=== PATIENT | female | born 1950 | race Caucasian/White ===

== ENCOUNTER 2018-03-03 17:35 | Inpatient (IN) | payer BC, MEDICARE ==
--- NOTE | 2018-03-03 19:06 | RADIOLOGY REPORT (SQ) ---
EXAM DESCRIPTION: VENOUS BILATERAL LOWER COMPLETED DATE/TIME: 03/03/2018 6:38 pm REASON FOR STUDY: SWELLING R22.42 LOCALIZED SWELLING, MASS AND LUMP, LEFT LOWER LIMB COMPARISON: None. TECHNIQUE: Dynamic and static miller scale and color images acquired of both lower extremity venous sy stems. Selected spectral images acquired with additional compression and augmentation maneuvers. Imag es stored on PACS. LIMITATIONS: None. FINDINGS: RIGHT LEG COMMON FEMORAL AND FEMORAL: Normal phasicity, compression and augmentation. No visualized echogenic m aterial on miller scale. No defects on color images. POPLITEAL: Normal compression and augmentation. No visualized echogenic material on miller scale. No de fects on color images. CALF VESSELS: Normal compression and augmentation. No visualized echogenic material on miller scale. No defects on color image. GSV AND SSV: Normal compression. No visualized echogenic material on miller scale. No defects on color images. ANY DEEP VENOUS INSUFFICIENCY: Not evaluated. ANY EVIDENCE OF POPLITEAL CYST: No. OTHER: No other significant finding. LEFT LEG There is thrombosis the in the left lower extremity from the common femoral vein throughout the super ficial femoral, popliteal, and calf veins. The thrombus appears to acute in noncompressible. There is also thrombus noted within the small saphenous vein. IMPRESSION: Acute deep venous thrombosis of the left lower extremity from the common femoral vein to the calf veins with thrombosis of the small saphenous vein on the left as well. No evidence of righ t lower extremity deep venous thrombosis. COMMENT: Pertinent findings on the imaging study reported as a CRITICAL RESULT to KRISTINA GRIMALDO MD at18:49 on 03/03/2018. Category of Critical Result: 1 TECHNICAL DOCUMENTATION: JOB ID: [id number] [employer]- All Rights Reserved Reading location - IP/workstation name: [email or web address]
--- NOTE | 2018-03-03 19:45 | PDOC H&P ---
History of Present Illness Admission Date/PCP: 03/03/18 18:49 History of Present Illness: MARGARET LIRA is a 67 year old female Results Impressions: Venous Doppler Study 03/03/18 00:00 IMPRESSION: Acute deep venous thrombosis of the left lower extremity from the common femoral vein to the calf veins with thrombosis of the small saphenous vein on the left as well. No evidence of right lower extremity deep venous thrombosis.
[2018-03-03 20:26] LABS: ABSOLUTE BASOPHILS # (AUTO) 0.1 10^3/uL (0.0-0.2); ABSOLUTE EOSINOPHILS # (AUTO) 0.2 10^3/uL (0.0-0.6); ABSOLUTE LYMPHOCYTES (AUTO) 1.2 10^3/uL (0.5-4.7); ABSOLUTE MONOCYTES (AUTO) 0.5 10^3/uL (0.1-1.4); ABSOLUTE NEUT (AUTO) 3.5 10^3/uL (1.7-8.2); BASOPHILS % (AUTO) 1.4 % (0-2); EOSINOPHILS % (AUTO) 4.4 % (0-6); HEMATOCRIT 41.6 % (36.0-47.0); LYMPHOCYTES % (AUTO) 21.5 % (13-45); MEAN CORPUSCULAR HEMOGLOBIN 28.2 pg (27.0-33.4); MEAN CORPUSCULAR HGB CONC 33.6 g/dL (32.0-36.0); MEAN CORPUSCULAR VOLUME 84 fl (80-97); MONOCYTES % (AUTO) 9.2 % (3-13); PLATELET COUNT 192 10^3/uL (150-450); RED BLOOD COUNT 4.96 10^6/uL (3.72-5.28); RED CELL DISTRIBUTION WIDTH 15.5 % (11.5-14.0); SEGMENTED NEUTROPHILS % (AUTO) 63.5 % (42-78); TOTAL CELLS COUNTED % (AUTO) 100 %; WHITE BLOOD COUNT 5.5 10^3/uL (4.0-10.5)
[2018-03-03 20:28] LABS: INTERNATIONAL RATION (INR) 0.89; PROTHROMBIN TIME 12.5 SEC (11.4-15.4)
[2018-03-03 20:29] LABS: PARTIAL THROMBOPLASTIN TIME 29.8 SEC (23.5-35.8)
[2018-03-03] MEDS ORDERED: HEPARIN SOD (PORCINE) 1,000 UNIT/ML 10 ML VIAL IV ONE (20:30)
[2018-03-03 20:44] LABS: BLOOD UREA NITROGEN 16 mg/dL (7-20); CALCIUM 9.9 mg/dL (8.4-10.2); GLUCOSE 83 mg/dL (75-110)
[2018-03-03 20:45] LABS: ALANINE AMINOTRANSFERASE 23 U/L (9-52); ALBUMIN 4.4 g/dL (3.5-5.0); ALKALINE PHOSPHATASE 77 U/L (38-126); ANION GAP 16 (5-19); ASPARTATE AMINO TRANSFERASE 32 U/L (14-36); BILIRUBIN,DIRECT 0.2 mg/dL (0.0-0.4); BILIRUBIN,TOTAL 0.5 mg/dL (0.2-1.3); CARBON DIOXIDE 27 mmol/L (22-30); CHLORIDE 99 mmol/L (98-107); POTASSIUM 3.7 mmol/L (3.6-5.0); SODIUM 142.4 mmol/L (137-145)
[2018-03-03] MEDS: HEPARIN SODIUM,PORCINE/D5W 25,000 UNIT/250 ML RTUINJ IV PRN (21:47)
[2018-03-03] MEDS ORDERED: HEPARIN SOD (PORCINE) 1,000 UNIT/ML 10 ML VIAL IV PRN (22:31)
[2018-03-03 23:08] LABS: APPEARANCE,URINE CLEAR; BILIRUBIN,URINE NEGATIVE (NEGATIVE); COLOR,URINE STRAW; GLUCOSE, URINE NEGATIVE (NEGATIVE); KETONES,URINE 20 mg/dL (NEGATIVE); LEUKOCYTE ESTERASE,URINE LARGE (NEGATIVE); NITRITE,URINE NEGATIVE (NEGATIVE); PROTEIN,URINE NEGATIVE (NEGATIVE); URINE SPECIFIC GRAVITY 1.008; UROBILINOGEN,URINE NEGATIVE mg/dL (<2.0)
--- NOTE | 2018-03-04 08:53 | RADIOLOGY REPORT (SQ) ---
EXAM DESCRIPTION: CT ABD/PELVIS WITH IV ORAL COMPLETED DATE/TIME: 03/04/2018 12:32 am REASON FOR STUDY: Extensive unprovoked left leg DVT R22.42 LOCALIZED SWELLING, MASS AND LUMP, LEFT LOWER LIMB COMPARISON: None. TECHNIQUE: CT scan of the abdomen and pelvis performed with intravenous and oral contrast using maryam pearl scanning technique with dynamic intravenous contrast injection. Images reviewed with lung, soft t issue, and bone windows. Reconstructed coronal and sagittal MPR images reviewed. Delayed images for e valuation of the urinary system also acquired. All images stored on PACS. All CT scanners at this facility use dose modulation, iterative reconstruction, and/or weight based d osing when appropriate to reduce radiation dose to as low as reasonably achievable (ALARA). [facility]: Dose Right [facility]: CareDose [facility]: Dose Right [facility]: Teradose 4D [facility]: Tizra CONTRAST TYPE AND DOSE: contrast/concentration: Isovue 370.00 mg/ml; Total Contrast Delivered: 100.0 ml; Total Saline Delivered: 40.0 ml RENAL FUNCTION: Creatinine 0.65. RADIATION DOSE: CT Rad equipment meets quality standard of care and radiation dose reduction techniq ues were employed. CTDIvol: 5.1 - 5.1 mGy. DLP: 534 mGy-cm.. LIMITATIONS: None. FINDINGS: LOWER CHEST: No significant findings. No nodules or infiltrates. LIVER: Normal size. No masses. No dilated ducts. SPLEEN: Normal size. No focal lesions. PANCREAS: No masses. No significant calcifications. No adjacent inflammation or peripancreatic fluid collections. Pancreatic duct not dilated. GALLBLADDER: No identified stones by CT criteria. No inflammatory changes to suggest cholecystitis. ADRENAL GLANDS: No significant masses or asymmetry. RIGHT KIDNEY AND URETER: No solid masses. No significant calcification. No hydronephrosis or hydroure ter. LEFT KIDNEY AND URETER: No solid masses. No significant calcification. No hydronephrosis or hydrouret er. AORTA AND VESSELS: No aneurysm. No dissection. Renal arteries, SMA, celiac without stenosis. RETROPERITONEUM: No retroperitoneal adenopathy, hemorrhage or masses. BOWEL AND PERITONEAL CAVITY: No obstruction. No visualized masses. No free fluid. No inflammatory ch anges or thickening of bowel wall. APPENDIX: Normal. PELVIS: Large soft tissue mass in the left pelvis and inguinal region beginning at the level of the u pper acetabulum and extending into the upper femoral canal. This mass surrounds the femoral vessels. Maximum transverse measurement approximately 7 x 8.6 cm and craniocaudal measurement approximately 9.5 cm. Normal bladder. No free fluid. ABDOMINAL WALL: No masses. No hernias. BONES: No significant or acute findings. OTHER: Asymmetric subcutaneous edema in the visualized upper left thigh. Thrombus in the visualize l eft femoral vein. IMPRESSION: 1. LARGE SOFT TISSUE MASS IN THE LEFT SIDE OF THE PELVIS AND EXTENDING INTO THE UPPER THIGH. THIS CO ULD BE DUE TO PRIMARY SOFT TISSUE NEOPLASM. LYMPHOMA COULD BE ANOTHER POSSIBILITY. THE MASS SURROUN DS THE FEMORAL VESSELS AND IS THE ETIOLOGY FOR THE VENOUS THROMBOSIS IN THE LEFT LEG. 2. NO OTHER SIGNIFICANT OR ACUTE FINDINGS IN THE ABDOMEN OR PELVIS. TECHNICAL DOCUMENTATION: JOB ID: [id number] Quality ID # [id number]: Final reports with documentation of one or more dose reduction techniques (e.g., Au tomated exposure control, adjustment of the mA and/or kV according to patient size, use of iterative reconstruction technique) 2010 [employer]- All Rights Reserved Reading location - IP/workstation name: [facility] [[email or web address]]
--- NOTE | 2018-03-04 08:54 | PDOC H&P ---
History of Present Illness Admission Date/PCP: 03/03/18 18:49 KRISTINA GRIMALDO MD Patient complains of: Left leg swelling History of Present Illness: MARGARET LIRA is a 67 year old female patient that is new to my practice presented with 3 months history of gradual left leg swelling. She denied any associated pain, distant travelling in recent time, trauma or instrumentation. She denied any prolong immobility. Her morbidities include history of thyroid problem, nasal polyps, and obesity. She denied current use of hormone replacement therapy and quit cigarette smoking since 2000. She has been taking Aspirin 81 mg p.o daily. Her initial evaluation in the office was significant for localized edema of left leg to groin level with concern for possible DVT. She was schedule for STAT lower extremities venous doppler evaluation that revealed extensive acute DVT involving the left femoral, popliteal and superficial saphenous veins. She was advised hospitalization for intravenous anticoagulation n view of the clot burden. Her morbidities include thyroid problem, nasal polyps, and obesity. Past Medical History Cardiac Medical History: Reports: None Pulmonary Medical History: Reports: None EENT Medical History: Reports: Nose - Nasal polyp Neurological Medical History: Reports: None Endocrine Medical History: Reports: Hypothyroidism Renal/ Medical History: Reports: None Malignancy Medical History: Reports: None GI Medical History: Reports: None Musculoskeltal Medical History: Reports: Arthritis Skin Medical History: Reports: None Psychiatric Medical History: Reports: None Traumatic Medical History: Reports: None Hematology: Reports: None Infectious Medical History: Reports: None Past Surgical History Past Surgical History: Reports: Hysterectomy Social History Smoking Status: Former Smoker Last Time Smoked: 2001 Frequency of Alcohol Use: None Hx Recreational Drug Use: No Drugs: None Hx Prescription Drug Abuse: No - Advance Directive Resuscitation Status: Full Code Family History Parental Family History Reviewed: Yes Children Family History Reviewed: Yes Sibling(s) Family History Reviewed.: Yes Medication/Allergy Allergies/Adverse Reactions: No Known Allergies Allergy (Verified 03/04/18 03:42) Physical Exam Vital Signs: Temp Pulse Resp BP Pulse Ox 97.6 F 54 L 16 123/68 97 03/04/18 03:37 03/04/18 03:37 03/04/18 03:37 03/04/18 03:37 03/04/18 03:37 Intake & Output 03/03/18 03/04/18 03/05/18 06:59 06:59 06:59 Intake Total 69 Output Total 800 Balance -731 Weight 59.874 kg General appearance: PRESENT: no acute distress, well-developed, well-nourished Head exam: PRESENT: atraumatic, normocephalic Eye exam: PRESENT: conjunctiva pink, EOMI, PERRLA. ABSENT: scleral icterus Ear exam: PRESENT: normal external ear exam Mouth exam: PRESENT: moist, tongue midline Throat exam: ABSENT: post pharyngeal erythema, tonsillar erythema, tonsillar exudate, tonsillogmegaly, other Neck exam: PRESENT: full ROM. ABSENT: carotid bruit, JVD, lymphadenopathy, thyromegaly Respiratory exam: PRESENT: clear to auscultation barrera Cardiovascular exam: PRESENT: RRR. ABSENT: diastolic murmur, rubs, systolic murmur Pulses: PRESENT: +1 pedal pulses bilateral - left lower extremity Vascular exam: PRESENT: normal capillary refill. ABSENT: pallor GI/Abdominal exam: PRESENT: normal bowel sounds, soft, other - palpable pulsating abdominal aorta. ABSENT: distended, guarding, mass, organolmegaly, rebound, tenderness Rectal exam: PRESENT: deferred Extremities exam: PRESENT: pedal edema - left leg to groin level Musculoskeletal exam: PRESENT: ambulatory Neurological exam: PRESENT: alert, awake, oriented to person, oriented to place , oriented to time, oriented to situation, CN II-XII grossly intact. ABSENT: motor sensory deficit Psychiatric exam: PRESENT: appropriate affect, normal mood. ABSENT: homicidal ideation, suicidal ideation Skin exam: PRESENT: dry, erythema - dependent in left leg, warm, other - distended superficial veins on left thigh. Some degree of varicose veins bilaterally Results Laboratory Results: 03/03/18 20:05 03/03/18 20:05 03/03/18 03/03/18 03/03/18 20:05 20:05 22:00 WBC 5.5 RBC 4.96 Hgb 14.0 Hct 41.6 MCV 84 MCH 28.2 MCHC 33.6 RDW 15.5 H Plt Count 192 Seg Neutrophils % 63.5 Lymphocytes % 21.5 Monocytes % 9.2 Eosinophils % 4.4 Basophils % 1.4 Absolute Neutrophils 3.5 Absolute Lymphocytes 1.2 Absolute Monocytes 0.5 Absolute Eosinophils 0.2 Absolute Basophils 0.1 Sodium 142.4 Potassium 3.7 Chloride 99 Carbon Dioxide 27 Anion Gap 16 BUN 16 Creatinine 0.65 Est GFR ( Amer) > 60 Est GFR (Non-Af Amer) > 60 Glucose 83 Calcium 9.9 Total Bilirubin 0.5 AST 32 ALT 23 Alkaline Phosphatase 77 Total Protein 8.0 Albumin 4.4 Urine Color STRAW Urine Appearance CLEAR Urine pH 6.0 Ur Specific [place] 1.008 Urine Protein NEGATIVE Urine Glucose (UA) NEGATIVE Urine Ketones 20 H Urine Blood NEGATIVE Urine Nitrite NEGATIVE Ur Leukocyte Esterase LARGE H Urine WBC (Auto) 5 Urine RBC (Auto) 1 Impressions: Venous Doppler Study 03/03/18 00:00 IMPRESSION: Acute deep venous thrombosis of the left lower extremity from the common femoral vein to the calf veins with thrombosis of the small saphenous vein on the left as well. No evidence of right lower extremity deep venous thrombosis. Assessment & Plan - Diagnosis (1) Deep vein thrombosis (DVT) of left lower extremity Qualifiers: Affected thrombotic vein of extremity: femoral Chronicity: acute Qualified Code(s): I82.412 - Acute embolism and thrombosis of left femoral vein Is this a current diagnosis for this admission?: Yes Plan: See admitting attending physician orders. - Time Time Spent: 50 to 70 Minutes Medications reviewed and adjusted accordingly: Yes Anticipated discharge: Home Within: Other - Inpatient Certification Based on my medical assessment, after consideration of the patient's comorbidities, presenting symptoms, or acuity I expect that the services needed warrant INPATIENT care.: Yes I certify that my determination is in accordance with my understanding of Medicare's requirements for reasonable and necessary INPATIENT services [42 CFR 412.3e].: Yes Medical Necessity: Need Close Monitoring Due to Risk of Patient Decompensation, Need For Continuous Telemetry Monitoring, Risk of Complication if Not Cared For in Hospital Post Hospital Care: D/C Casing Man Documentation - Plan Summary Plan Summary: See attending physician orders.
--- NOTE | 2018-03-04 19:03 | PDOC PROGRESS REPORT ---
Subjective Progress Note for:: 03/04/18 Subjective:: Patient denied any chest pain, difficulty with breathing, nausea, vomiting or abdominal pain. She remain on IV heparin therapy for acute extensive DVT with femoral vein involvement. No abnormal bleeding. Reason For Visit: EXTENSIVE DVT LEFT LOWER EXTREMITY Physical Exam Vital Signs: Temp Pulse Resp BP Pulse Ox 97.6 F 54 L 16 123/68 97 03/04/18 03:37 03/04/18 03:37 03/04/18 03:37 03/04/18 03:37 03/04/18 03:37 Intake & Output 03/03/18 03/04/18 03/05/18 06:59 06:59 06:59 Intake Total 69 Output Total 800 Balance -731 Weight 59.874 kg General appearance: PRESENT: no acute distress, well-developed, well-nourished Head exam: PRESENT: atraumatic, normocephalic Eye exam: PRESENT: conjunctiva pink, EOMI, PERRLA. ABSENT: scleral icterus Ear exam: PRESENT: normal external ear exam Mouth exam: PRESENT: moist, neck supple, tongue midline Respiratory exam: PRESENT: clear to auscultation barrera Cardiovascular exam: PRESENT: RRR. ABSENT: diastolic murmur, rubs, systolic murmur Vascular exam: PRESENT: normal capillary refill. ABSENT: pallor GI/Abdominal exam: PRESENT: normal bowel sounds, soft. ABSENT: distended, guarding, mass, organolmegaly, rebound, tenderness Rectal exam: PRESENT: deferred Extremities exam: PRESENT: pedal edema - left lower extremity Musculoskeletal exam: PRESENT: ambulatory Neurological exam: PRESENT: alert, awake, oriented to person, oriented to place , oriented to time, oriented to situation, CN II-XII grossly intact. ABSENT: motor sensory deficit Psychiatric exam: PRESENT: appropriate affect, normal mood. ABSENT: homicidal ideation, suicidal ideation Skin exam: PRESENT: dry, intact, warm. ABSENT: cyanosis, rash Results Laboratory Results: 03/03/18 20:05 03/03/18 20:05 03/03/18 03/03/18 03/03/18 20:05 20:05 22:00 WBC 5.5 RBC 4.96 Hgb 14.0 Hct 41.6 MCV 84 MCH 28.2 MCHC 33.6 RDW 15.5 H Plt Count 192 Seg Neutrophils % 63.5 Lymphocytes % 21.5 Monocytes % 9.2 Eosinophils % 4.4 Basophils % 1.4 Absolute Neutrophils 3.5 Absolute Lymphocytes 1.2 Absolute Monocytes 0.5 Absolute Eosinophils 0.2 Absolute Basophils 0.1 Sodium 142.4 Potassium 3.7 Chloride 99 Carbon Dioxide 27 Anion Gap 16 BUN 16 Creatinine 0.65 Est GFR ( Amer) > 60 Est GFR (Non-Af Amer) > 60 Glucose 83 Calcium 9.9 Total Bilirubin 0.5 AST 32 ALT 23 Alkaline Phosphatase 77 Total Protein 8.0 Albumin 4.4 Urine Color STRAW Urine Appearance CLEAR Urine pH 6.0 Ur Specific [place] 1.008 Urine Protein NEGATIVE Urine Glucose (UA) NEGATIVE Urine Ketones 20 H Urine Blood NEGATIVE Urine Nitrite NEGATIVE Ur Leukocyte Esterase LARGE H Urine WBC (Auto) 5 Urine RBC (Auto) 1 Impressions: Venous Doppler Study 03/03/18 00:00 IMPRESSION: Acute deep venous thrombosis of the left lower extremity from the common femoral vein to the calf veins with thrombosis of the small saphenous vein on the left as well. No evidence of right lower extremity deep venous thrombosis. Abdomen/Pelvis CT 03/04/18 00:00 IMPRESSION: 1. LARGE SOFT TISSUE MASS IN THE LEFT SIDE OF THE PELVIS AND EXTENDING INTO THE UPPER THIGH. THIS COULD BE DUE TO PRIMARY SOFT TISSUE NEOPLASM. LYMPHOMA COULD BE ANOTHER POSSIBILITY. THE MASS SURROUNDS THE FEMORAL VESSELS AND IS THE ETIOLOGY FOR THE VENOUS THROMBOSIS IN THE LEFT LEG. 2. NO OTHER SIGNIFICANT OR ACUTE FINDINGS IN THE ABDOMEN OR PELVIS. Assessment & Plan - Diagnosis (1) Deep vein thrombosis (DVT) of left lower extremity Qualifiers: Affected thrombotic vein of extremity: femoral Chronicity: acute Qualified Code(s): I82.412 - Acute embolism and thrombosis of left femoral vein Is this a current diagnosis for this admission?: Yes (2) Pelvic mass in female Is this a current diagnosis for this admission?: Yes Plan: See attending physician orders. - Time Time Spent with patient: 25-34 minutes Medications reviewed and adjusted accordingly: Yes Anticipated discharge: Home Within: Other - Inpatient Certification Based on my medical assessment, after consideration of the patient's comorbidities, presenting symptoms, or acuity I expect that the services needed warrant INPATIENT care.: Yes I certify that my determination is in accordance with my understanding of Medicare's requirements for reasonable and necessary INPATIENT services [42 CFR 412.3e].: Yes Medical Necessity: Need Close Monitoring Due to Risk of Patient Decompensation, Need For Continuous Telemetry Monitoring, Risk of Complication if Not Cared For in Hospital Post Hospital Care: D/C Network Programmer Documentation - Plan Summary Plan Summary: Continue IV anticoagulation therapy with Heparin. I reviewed and discussed CT abdomen and pelvic findings with marble mason radiologist. Lesion is accessible to biopsy. I discussed CT abdomen/pelvic findings with patient and son at bedside. Need for US or CT guided biopsy of left pelvic mass. We will hold IV heparin infusion for at least 4 hours prior to biopsy procedure.
[2018-03-05] MEDS: HEPARIN SODIUM,PORCINE/D5W 25,000 UNIT/250 ML RTUINJ IV PRN (05:55)
[2018-03-05 06:05] LABS: HEMATOCRIT 38.6 % (36.0-47.0); HEMOGLOBIN 12.9 g/dL (12.0-15.5); MEAN CORPUSCULAR HEMOGLOBIN 28.3 pg (27.0-33.4); MEAN CORPUSCULAR HGB CONC 33.5 g/dL (32.0-36.0); MEAN CORPUSCULAR VOLUME 85 fl (80-97); PLATELET COUNT 171 10^3/uL (150-450); RED BLOOD COUNT 4.57 10^6/uL (3.72-5.28); RED CELL DISTRIBUTION WIDTH 15.6 % (11.5-14.0); WHITE BLOOD COUNT 5.2 10^3/uL (4.0-10.5)
[2018-03-05 07:16] LABS: APPEARANCE,URINE CLEAR; BILIRUBIN,URINE NEGATIVE (NEGATIVE); COLOR,URINE YELLOW; GLUCOSE, URINE NEGATIVE (NEGATIVE); KETONES,URINE TRACE mg/dL (NEGATIVE); LEUKOCYTE ESTERASE,URINE MODERATE (NEGATIVE); NITRITE,URINE NEGATIVE (NEGATIVE); PROTEIN,URINE NEGATIVE (NEGATIVE); URINE SPECIFIC GRAVITY 1.019; UROBILINOGEN,URINE NEGATIVE mg/dL (<2.0)
[2018-03-05] MEDS ORDERED: LIDOCAINE 1% INJ-PF (10 MG/ML) 30 ML SDV ONE (12:56)
--- NOTE | 2018-03-05 13:59 | RADIOLOGY REPORT (SQ) ---
EXAM DESCRIPTION: US BIOPSY SFT TISS JEAN STEWART COMPLETED DATE/TIME: 03/05/2018 1:39 pm REASON FOR STUDY: Lf. pelvic mass Lf. leg DVT on heparin infusion R22.42 LOCALIZED SWELLING, MASS AND LUMP, LEFT LOWER LIMB COMPARISON: CT scan TECHNIQUE: The procedure was discussed with the patient and the patient agreed to proceed. The patient was scanned and the area of interest left lower abdomen to groins. This correlates with the area of concern on prior imaging studies. This area was targeted for ultrasound-guided core biops y. After sterile skin prep and 5 mL local lidocaine 1% for skin and deep tissue anesthesia, a 14 biopsy needle was used to obtain several cores of tissue from the lesion. There were no immediate post-pro cedure complications. LIMITATIONS: None. FINDINGS: Ultrasound-guided biopsy of soft tissue mass in the left lower quadrant. IMPRESSION: Ultrasound-guided biopsy of soft tissue mass in the left lower quadrant. Pathology is p ending. COMMENT: COMMUNICATION: Awaiting pathology. Patient medication list reviewed: Yes- Quality ID# [id number]:Eligible professional attests to documenting i n the medical record they obtained, updated, or reviewed the patient's current medications. TECHNICAL DOCUMENTATION: JOB ID: [id number] [employer]- All Rights Reserved Reading location - IP/workstation name: [email or web address]
[2018-03-05] MEDS ORDERED: HEPARIN SODIUM,PORCINE/D5W 25,000 UNIT/250 ML RTUINJ IV PRN (15:18)
[2018-03-05] MEDS ORDERED: HEPARIN SOD (PORCINE) 1,000 UNIT/ML 10 ML VIAL IV PRN (15:18)
--- NOTE | 2018-03-05 15:42 | PDOC PROGRESS REPORT ---
Subjective Progress Note for:: 03/05/18 Subjective:: No abnormal bleeding. remain on IV Heparin infusion for extensive DVT. She had left pelvic mass biopsy earlier today. No chest pain or difficulty with breathing. No nausea, vomiting, or abdominal pain. No fever or chills. Reason For Visit: EXTENSIVE DVT LEFT LOWER EXTREMITY Physical Exam Vital Signs: Temp Pulse Resp BP Pulse Ox 98.2 F 65 16 119/67 96 03/05/18 11:22 03/05/18 11:22 03/05/18 11:22 03/05/18 11:22 03/05/18 11:22 Intake & Output 03/04/18 03/05/18 03/06/18 06:59 06:59 06:59 Intake Total 69 907 189 Output Total 800 Balance -731 907 189 Weight 59.874 kg 59.3 kg Physical Exam: General appearance: PRESENT: no acute distress, well-developed, well-nourished Head exam: PRESENT: atraumatic, normocephalic Eye exam: PRESENT: conjunctiva pink, EOMI, PERRLA. ABSENT: scleral icterus Ear exam: PRESENT: normal external ear exam Mouth exam: PRESENT: moist, neck supple, tongue midline Respiratory exam: PRESENT: clear to auscultation barrera Cardiovascular exam: PRESENT: RRR. ABSENT: diastolic murmur, rubs, systolic murmur Vascular exam: PRESENT: normal capillary refill. ABSENT: pallor GI/Abdominal exam: PRESENT: normal bowel sounds, soft. ABSENT: distended, guarding, mass, organomegaly, rebound, tenderness Rectal exam: PRESENT: deferred Extremities exam: PRESENT: pedal edema - left lower extremity Musculoskeletal exam: PRESENT: ambulatory Neurological exam: PRESENT: alert, awake, oriented to person, oriented to place , oriented to time, oriented to situation, CN II-XII grossly intact. ABSENT: motor sensory deficit Psychiatric exam: PRESENT: appropriate affect, normal mood. ABSENT: homicidal ideation, suicidal ideation Skin exam: PRESENT: dry, intact, warm. ABSENT: cyanosis, rash Results Laboratory Results: 03/05/18 05:52 03/03/18 20:05 03/05/18 03/05/18 05:52 06:30 WBC 5.2 RBC 4.57 Hgb 12.9 Hct 38.6 MCV 85 MCH 28.3 MCHC 33.5 RDW 15.6 H Plt Count 171 Urine Color YELLOW Urine Appearance CLEAR Urine pH 5.0 Ur Specific [place] 1.019 Urine Protein NEGATIVE Urine Glucose (UA) NEGATIVE Urine Ketones TRACE H Urine Blood NEGATIVE Urine Nitrite NEGATIVE Ur Leukocyte Esterase MODERATE H Urine WBC (Auto) 3 Urine RBC (Auto) 0 Impressions: Venous Doppler Study 03/03/18 00:00 IMPRESSION: Acute deep venous thrombosis of the left lower extremity from the common femoral vein to the calf veins with thrombosis of the small saphenous vein on the left as well. No evidence of right lower extremity deep venous thrombosis. Abdomen/Pelvis CT 03/04/18 00:00 IMPRESSION: 1. LARGE SOFT TISSUE MASS IN THE LEFT SIDE OF THE PELVIS AND EXTENDING INTO THE UPPER THIGH. THIS COULD BE DUE TO PRIMARY SOFT TISSUE NEOPLASM. LYMPHOMA COULD BE ANOTHER POSSIBILITY. THE MASS SURROUNDS THE FEMORAL VESSELS AND IS THE ETIOLOGY FOR THE VENOUS THROMBOSIS IN THE LEFT LEG. 2. NO OTHER SIGNIFICANT OR ACUTE FINDINGS IN THE ABDOMEN OR PELVIS. Pelvis Biopsy Ultrasound 03/05/18 06:00 IMPRESSION: Ultrasound-guided biopsy of soft tissue mass in the left lower quadrant. Pathology is pending. Assessment & Plan - Diagnosis (1) Deep vein thrombosis (DVT) of left lower extremity Qualifiers: Affected thrombotic vein of extremity: femoral Chronicity: acute Qualified Code(s): I82.412 - Acute embolism and thrombosis of left femoral vein Is this a current diagnosis for this admission?: Yes Plan: Continue attending physician orders. I will request vascular surgery consultation with Dr Ady Pate for consideration of IVC filter placement in view of clot burden and high risk of embolization. (2) Pelvic mass in female Is this a current diagnosis for this admission?: Yes Plan: Follow up on biopsy pathology report. - Time Time Spent with patient: 25-34 minutes Medications reviewed and adjusted accordingly: Yes Anticipated discharge: Home Within: Other - Inpatient Certification Based on my medical assessment, after consideration of the patient's comorbidities, presenting symptoms, or acuity I expect that the services needed warrant INPATIENT care.: Yes I certify that my determination is in accordance with my understanding of Medicare's requirements for reasonable and necessary INPATIENT services [42 CFR 412.3e].: Yes Medical Necessity: Need Close Monitoring Due to Risk of Patient Decompensation, Need For Continuous Telemetry Monitoring, Risk of Complication if Not Cared For in Hospital Post Hospital Care: D/C Project/Production Manager Imaging Documentation - Plan Summary Plan Summary: See attending physician orders.
[2018-03-06 06:39] LABS: PROTEIN C ANTIGEN 89 % (60-150)
--- NOTE | 2018-03-06 13:45 | PDOC CONSULTATION ---
Consultation Consult Date: 03/06/18 Attending physician:: porter Ibarra Consult reason:: Left lower extremity DVT swelling, left pelvic mass. Regarding management. History of Present Illness Admission Date/PCP: 03/03/18 18:49 Patient complains of: Left-sided leg swelling and the left lower abdominal mass. Actually noted over the last 3 months but worse of late. Not much discomfort. She is active gardening and doing yard work and also in her job As an [employer] Pre [employer]er. History of Present Illness: MARGARET LIRA is a 67 year old female Past Medical History Cardiac Medical History: Reports: None Pulmonary Medical History: Reports: None EENT Medical History: Reports: Nose - Nasal polyp Neurological Medical History: Reports: None Endocrine Medical History: Reports: Hypothyroidism Renal/ Medical History: Reports: None Malignancy Medical History: Reports: None GI Medical History: Reports: None Musculoskeltal Medical History: Reports: Arthritis Skin Medical History: Reports: None Psychiatric Medical History: Reports: None Traumatic Medical History: Reports: None Hematology: Reports: None Infectious Medical History: Reports: None Past Surgical History Past Surgical History: Reports: Hysterectomy Social History Smoking Status: Former Smoker Last Time Smoked: 2001 Frequency of Alcohol Use: None Hx Recreational Drug Use: No Drugs: None Hx Prescription Drug Abuse: No - Advance Directive Resuscitation Status: Full Code Family History Parental Family History Reviewed: No Children Family History Reviewed: No Sibling(s) Family History Reviewed.: No Medication/Allergy Home Medications: Aspirin [Ecotrin 81 mg EC Tablet] 81 mg PO DAILY 03/04/18 Allergies/Adverse Reactions: No Known Allergies Allergy (Verified 03/04/18 03:42) Physical Exam Vital Signs: Temp Pulse Resp BP Pulse Ox 97.7 F 62 20 123/65 98 03/06/18 12:18 03/06/18 12:18 03/06/18 12:18 03/06/18 12:18 03/06/18 12:18 Intake & Output 03/05/18 03/06/18 03/07/18 06:59 06:59 06:59 Intake Total 907 872 55 Balance 907 872 55 Weight 59.3 kg 58.9 kg Additional comments: Constitutional: Well-developed well-nourished lady. No apparent acute distress. Eyes: Mucous membranes pink and moist, pupils equal and reactive to light. Conjunctiva normal. Cornea normal. ENT: Hearing grossly normal. External pinna normal to inspection. Teeth intact. Tongue normal to inspection. Cardiac: Heart sounds 1 and 2 normal, no murmurs. No carotid bruit. Respiratory breath sounds are present bilaterally, normal. Normal respiratory effort. Skin: Normal to inspection. No ulcers, normal turgor. Abdomen: Soft, nontender. Liver and spleen are not palpably enlarged. Left lower pelvic mass appreciated diffusely. No hernia noted. Psychiatric: Judgment, memory, insight seem normal. Mood is pleasant and appropriate. Extremities: Upper extremities show normal range of movement. Pulses present noted to the radial arteries. Capillary refill normal. No cyanosis noted. No muscle wasting noted. Lower extremities show normal range of movement. Pulses present noted to the dorsalis pedis artery. Capillary refill normal. No cyanosis noted. No muscle wasting noted. Considerable swelling is appreciated from above the ankle up to the upper thigh, on the left only. Results Laboratory Results: 03/05/18 05:52 03/03/18 20:05 Impressions: Venous Doppler Study 03/03/18 00:00 IMPRESSION: Acute deep venous thrombosis of the left lower extremity from the common femoral vein to the calf veins with thrombosis of the small saphenous vein on the left as well. No evidence of right lower extremity deep venous thrombosis. Abdomen/Pelvis CT 03/04/18 00:00 IMPRESSION: 1. LARGE SOFT TISSUE MASS IN THE LEFT SIDE OF THE PELVIS AND EXTENDING INTO THE UPPER THIGH. THIS COULD BE DUE TO PRIMARY SOFT TISSUE NEOPLASM. LYMPHOMA COULD BE ANOTHER POSSIBILITY. THE MASS SURROUNDS THE FEMORAL VESSELS AND IS THE ETIOLOGY FOR THE VENOUS THROMBOSIS IN THE LEFT LEG. 2. NO OTHER SIGNIFICANT OR ACUTE FINDINGS IN THE ABDOMEN OR PELVIS. Pelvis Biopsy Ultrasound 03/05/18 06:00 IMPRESSION: Ultrasound-guided biopsy of soft tissue mass in the left lower quadrant. Pathology is pending. Assessment & Plan - Plan Summary Plan Summary: In this pleasant generally very healthy and active lady, hospitalized for left lower extremity swelling with DVT and finding of a left pelvic mass, the major issue appears to be the mass which has been biopsied results probably are available early next week. The swelling and mass have been known to the patient for approximately 3 months. No need for inferior vena cava filter in this case. I do completely agree with anticoagulation for 6 weeks to 3 months. I do recommend use of compression stockings, knee-high, 20-30 mmHg. These are to be worn during the day and may be removed in the evening. Hydration, activity, especially with stockings on encouraged. No obvious impediment to the patient's continuing her normal occupation. Thank you for the courtesy of this consultation. I will be happy to see the patient on an outpatient basis for further management of her lower extremity issues
--- NOTE | 2018-03-06 15:01 | PDOC PROGRESS REPORT ---
Subjective Progress Note for:: 03/06/18 Subjective:: Patient was seen by the bedside, she has extensive deep vein thrombosis of the left lower extremity, CT scan of the abdomen and pelvis demonstrated a large pelvic mass, biopsy was taken, pathology is pending Reason For Visit: EXTENSIVE DVT LEFT LOWER EXTREMITY Physical Exam Vital Signs: Temp Pulse Resp BP Pulse Ox 97.7 F 62 20 123/65 98 03/06/18 12:18 03/06/18 12:18 03/06/18 12:18 03/06/18 12:18 03/06/18 12:18 Intake & Output 03/05/18 03/06/18 03/07/18 06:59 06:59 06:59 Intake Total 907 872 55 Balance 907 872 55 Weight 59.3 kg 58.9 kg General appearance: PRESENT: no acute distress Eye exam: PRESENT: PERRLA Respiratory exam: PRESENT: clear to auscultation barrera Cardiovascular exam: PRESENT: +S1, +S2 GI/Abdominal exam: PRESENT: soft Extremities exam: PRESENT: other - Extensive swelling of the left leg Neurological exam: PRESENT: alert Results Laboratory Results: 03/05/18 05:52 03/03/18 20:05 Impressions: Venous Doppler Study 03/03/18 00:00 IMPRESSION: Acute deep venous thrombosis of the left lower extremity from the common femoral vein to the calf veins with thrombosis of the small saphenous vein on the left as well. No evidence of right lower extremity deep venous thrombosis. Abdomen/Pelvis CT 03/04/18 00:00 IMPRESSION: 1. LARGE SOFT TISSUE MASS IN THE LEFT SIDE OF THE PELVIS AND EXTENDING INTO THE UPPER THIGH. THIS COULD BE DUE TO PRIMARY SOFT TISSUE NEOPLASM. LYMPHOMA COULD BE ANOTHER POSSIBILITY. THE MASS SURROUNDS THE FEMORAL VESSELS AND IS THE ETIOLOGY FOR THE VENOUS THROMBOSIS IN THE LEFT LEG. 2. NO OTHER SIGNIFICANT OR ACUTE FINDINGS IN THE ABDOMEN OR PELVIS. Pelvis Biopsy Ultrasound 03/05/18 06:00 IMPRESSION: Ultrasound-guided biopsy of soft tissue mass in the left lower quadrant. Pathology is pending. Assessment & Plan - Diagnosis (1) Deep vein thrombosis (DVT) of left lower extremity Qualifiers: Affected thrombotic vein of extremity: femoral Chronicity: acute Qualified Code(s): I82.412 - Acute embolism and thrombosis of left femoral vein Is this a current diagnosis for this admission?: Yes Plan: Continue IV coagulation with heparin (2) Pelvic mass in female Is this a current diagnosis for this admission?: Yes
[2018-03-06] MEDS: HEPARIN SODIUM,PORCINE/D5W 25,000 UNIT/250 ML RTUINJ IV PRN (17:00)
[2018-03-07 06:05] LABS: PROTEIN C ACTIVITY 104 % (73-180); PROTEIN S FREE 77 % (57-157); PROTEIN S FUNCTIONAL 80 % (63-140); PROTEIN S TOTAL 110 % (60-150)
--- NOTE | 2018-03-07 15:14 | PDOC PROGRESS REPORT ---
Subjective Progress Note for:: 03/07/18 Subjective:: She has extensive DVT in the background of the pelvic mass probably malignant, pathology is pending, it is reasonable at this point to transition to oral anticoagulant. Reason For Visit: EXTENSIVE DVT LEFT LOWER EXTREMITY Physical Exam Vital Signs: Temp Pulse Resp BP Pulse Ox 97.3 F 61 16 124/71 99 03/07/18 08:02 03/07/18 08:02 03/07/18 08:02 03/07/18 08:02 03/07/18 08:02 Intake & Output 03/06/18 03/07/18 03/08/18 06:59 06:59 06:59 Intake Total 872 2 Balance 872 2 Weight 58.9 kg 63 kg General appearance: PRESENT: no acute distress Eye exam: PRESENT: PERRLA Respiratory exam: PRESENT: clear to auscultation barrera Cardiovascular exam: PRESENT: +S1, +S2 GI/Abdominal exam: PRESENT: soft Neurological exam: PRESENT: alert Results Laboratory Results: 03/05/18 05:52 03/03/18 20:05 Impressions: Venous Doppler Study 03/03/18 00:00 IMPRESSION: Acute deep venous thrombosis of the left lower extremity from the common femoral vein to the calf veins with thrombosis of the small saphenous vein on the left as well. No evidence of right lower extremity deep venous thrombosis. Abdomen/Pelvis CT 03/04/18 00:00 IMPRESSION: 1. LARGE SOFT TISSUE MASS IN THE LEFT SIDE OF THE PELVIS AND EXTENDING INTO THE UPPER THIGH. THIS COULD BE DUE TO PRIMARY SOFT TISSUE NEOPLASM. LYMPHOMA COULD BE ANOTHER POSSIBILITY. THE MASS SURROUNDS THE FEMORAL VESSELS AND IS THE ETIOLOGY FOR THE VENOUS THROMBOSIS IN THE LEFT LEG. 2. NO OTHER SIGNIFICANT OR ACUTE FINDINGS IN THE ABDOMEN OR PELVIS. Pelvis Biopsy Ultrasound 03/05/18 06:00 IMPRESSION: Ultrasound-guided biopsy of soft tissue mass in the left lower quadrant. Pathology is pending. Assessment & Plan - Diagnosis (1) Deep vein thrombosis (DVT) of left lower extremity Qualifiers: Affected thrombotic vein of extremity: femoral Chronicity: acute Qualified Code(s): I82.412 - Acute embolism and thrombosis of left femoral vein Is this a current diagnosis for this admission?: Yes Plan: It is reasonable at this point to transition to oral anticoagulant, Discontinue IV heparin, start oral Xarelto 15 mg p.o. twice daily for 3 weeks then 20 mg p.o. daily (2) Pelvic mass in female Is this a current diagnosis for this admission?: Yes
[2018-03-07] MEDS: RIVAROXABAN 15 MG TABLET PO SCH (16:17)
[2018-03-08 04:40] LABS: HEMATOCRIT 37.8 % (36.0-47.0); HEMOGLOBIN 12.6 g/dL (12.0-15.5); MEAN CORPUSCULAR HEMOGLOBIN 28.3 pg (27.0-33.4); MEAN CORPUSCULAR HGB CONC 33.2 g/dL (32.0-36.0); MEAN CORPUSCULAR VOLUME 85 fl (80-97); PLATELET COUNT 163 10^3/uL (150-450); RED BLOOD COUNT 4.43 10^6/uL (3.72-5.28); WHITE BLOOD COUNT 5.5 10^3/uL (4.0-10.5)
[2018-03-08] MEDS: RIVAROXABAN 15 MG TABLET PO SCH ×2 (08:12→18:57)
--- NOTE | 2018-03-08 19:58 | PDOC PROGRESS REPORT ---
Subjective Progress Note for:: 03/08/18 Subjective:: Interval notes and surgical consult recommendations appreciated. Patient remain on IV Heparin infusion for extensive DVT. No reported abnormal bleeding. Awaiting left pelvic mass biopsy pathology report. No chest pain or difficulty with breathing. No nausea, vomiting, or abdominal pain. No fever or chills. Reason For Visit: EXTENSIVE DVT LEFT LOWER EXTREMITY Physical Exam Vital Signs: Temp Pulse Resp BP Pulse Ox 97.9 F 60 18 117/65 98 03/07/18 20:03 03/08/18 02:00 03/07/18 20:03 03/07/18 20:03 03/07/18 20:03 Intake & Output 03/07/18 03/08/18 03/09/18 06:59 06:59 06:59 Intake Total 2051 104 Balance 2051 104 Weight 63 kg 63.6 kg Physical Exam: General appearance: PRESENT: no acute distress, well-developed, well-nourished Head exam: PRESENT: atraumatic, normocephalic Eye exam: PRESENT: conjunctiva pink, EOMI, PERRLA. ABSENT: scleral icterus Ear exam: PRESENT: normal external ear exam Mouth exam: PRESENT: moist, neck supple, tongue midline Respiratory exam: PRESENT: clear to auscultation barrera Cardiovascular exam: PRESENT: RRR. ABSENT: diastolic murmur, rubs, systolic murmur Vascular exam: PRESENT: normal capillary refill. ABSENT: pallor GI/Abdominal exam: PRESENT: normal bowel sounds, soft. ABSENT: distended, guarding, mass, organomegaly, rebound, tenderness Rectal exam: PRESENT: deferred Extremities exam: PRESENT: pedal edema - left lower extremity Musculoskeletal exam: PRESENT: ambulatory Neurological exam: PRESENT: alert, awake, oriented to person, oriented to place , oriented to time, oriented to situation, CN II-XII grossly intact. ABSENT: motor sensory deficit Psychiatric exam: PRESENT: appropriate affect, normal mood. ABSENT: homicidal ideation, suicidal ideation Skin exam: PRESENT: dry, intact, warm. ABSENT: cyanosis, rash Results Laboratory Results: 03/08/18 04:07 03/03/18 20:05 03/08/18 04:07 WBC 5.5 RBC 4.43 Hgb 12.6 Hct 37.8 MCV 85 MCH 28.3 MCHC 33.2 RDW 16.0 H Plt Count 163 Impressions: Venous Doppler Study 03/03/18 00:00 IMPRESSION: Acute deep venous thrombosis of the left lower extremity from the common femoral vein to the calf veins with thrombosis of the small saphenous vein on the left as well. No evidence of right lower extremity deep venous thrombosis. Abdomen/Pelvis CT 03/04/18 00:00 IMPRESSION: 1. LARGE SOFT TISSUE MASS IN THE LEFT SIDE OF THE PELVIS AND EXTENDING INTO THE UPPER THIGH. THIS COULD BE DUE TO PRIMARY SOFT TISSUE NEOPLASM. LYMPHOMA COULD BE ANOTHER POSSIBILITY. THE MASS SURROUNDS THE FEMORAL VESSELS AND IS THE ETIOLOGY FOR THE VENOUS THROMBOSIS IN THE LEFT LEG. 2. NO OTHER SIGNIFICANT OR ACUTE FINDINGS IN THE ABDOMEN OR PELVIS. Pelvis Biopsy Ultrasound 03/05/18 06:00 IMPRESSION: Ultrasound-guided biopsy of soft tissue mass in the left lower quadrant. Pathology is pending. Assessment & Plan - Diagnosis (1) Deep vein thrombosis (DVT) of left lower extremity Qualifiers: Affected thrombotic vein of extremity: femoral Chronicity: acute Qualified Code(s): I82.412 - Acute embolism and thrombosis of left femoral vein Is this a current diagnosis for this admission?: Yes (2) Pelvic mass in female Is this a current diagnosis for this admission?: Yes - Time Time Spent with patient: 25-34 minutes Medications reviewed and adjusted accordingly: Yes Anticipated discharge: Home Within: within 48 hours - Inpatient Certification Based on my medical assessment, after consideration of the patient's comorbidities, presenting symptoms, or acuity I expect that the services needed warrant INPATIENT care.: Yes I certify that my determination is in accordance with my understanding of Medicare's requirements for reasonable and necessary INPATIENT services [42 CFR 412.3e].: Yes Medical Necessity: Need Close Monitoring Due to Risk of Patient Decompensation, Need For Continuous Telemetry Monitoring, Risk of Complication if Not Cared For in Hospital Post Hospital Care: D/C Can Tester Documentation - Plan Summary Plan Summary: Maintain on Xalreto 15 mg p.o bid x 21 days total and thereafter 20 mg p.o daily. Follow up on left pelvic mass biopsy report. Compression stocking 20-30 mmHg for use with left leg swelling. Continue all other current medication management.
[2018-03-08 20:26] VITALS: BP 121/70
--- NOTE | 2018-03-08 20:27 | PDOC DISCHARGE SUMMARY ---
General - Admit/Disc Date/PCP Admission Date/Primary Care Provider: 03/03/18 18:49 Discharge Date: 03/08/18 - Discharge Diagnosis (1) Deep vein thrombosis (DVT) of left lower extremity Is this a current diagnosis for this admission?: Yes Summary: Patient will continue Xarelto 15 mg po bid x 20 days and thereafter 20 mg p.o daily. She will be discharged home with compression stocking grade 20-30 mmHg for left leg. 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 I discussed case with Dr Biggs, medical oncologist, who has accepted to see patient on Thursday03/10/2018 at 1 pm at [facility]. Arrangement will be made to follow up with pathologist regarding further staining and definite diagnosis by Dr Biggs. - Additional Information Resuscitation Status: Full Code Prescriptions: Compr.stocking,Thigh,Reg,Large [Compression Thigh Stocking] 1 each MC DAILY #2 each Rivaroxaban [Xarelto 15 mg Tablet] 15 mg PO BIDBS #40 tablet Home Medications: Compr.stocking,Thigh,Reg,Large [Compression Thigh Stocking] 1 each MC DAILY #2 each 03/08/18 Rivaroxaban [Xarelto 15 mg Tablet] 15 mg PO BIDBS #40 tablet 03/08/18 History of Present Illness Patient complains of: Left leg swelling History of Present Illness: MARGARET LIRA is a 67 year old female patient that is new to my practice presented with 3 months history of gradual left leg swelling. She denied any associated pain, distant travelling in recent time, trauma or instrumentation. She denied any prolong immobility. Her morbidities include history of thyroid problem, nasal polyps, and obesity. She denied current use of hormone replacement therapy and quit cigarette smoking since 2000. She has been taking Aspirin 81 mg p.o daily. Her initial evaluation in the office was significant for localized edema of left leg to groin level with concern for possible DVT. She was schedule for STAT lower extremities venous doppler evaluation that revealed extensive acute DVT involving the left femoral, popliteal and superficial saphenous veins. She was advised hospitalization for intravenous anticoagulation n view of the clot burden. Her morbidities include thyroid problem, nasal polyps, and obesity. Hospital Course Hospital Course: Patient was admitted for extensive acute thrombosis of left leg with femoral/ popliteal/saphenous veins involvement. Her CT scan abdomen and pelvis revealed large left pelvic mass. She had US guided biopsy of the mass on 04/05/18. She was managed with IV heparin and eventually transition to oral Xarelto. She was seen by Dr. Ady Pate for concern about clot burden and consideration of IVC filter. Recommendation was for compression stocking therapy and anticoagulation for approximately 3 months. I discussed case with pathology staff and presently biopsy findings was suggestive of lymphoid tissue process that need further staining for definite diagnosis. I discussed case with Dr Biggs, medical oncologist, she will see patient in office on 03/10/2018 at 1pm. Patient is agreeable to discharge home today. She will follow up with me as scheduled and informed upon discharge. Physical Exam Vital Signs: Temp Pulse Resp BP Pulse Ox 98.2 F 65 16 126/68 H 100 03/08/18 15:57 03/08/18 19:00 03/08/18 15:57 03/08/18 15:57 03/08/18 15:57 Intake & Output 03/07/18 03/08/18 03/09/18 06:59 06:59 06:59 Intake Total 2051 1043 1054 Balance 2051 1043 1054 Weight 63 kg 63.6 kg Physical Exam: General appearance: PRESENT: no acute distress, well-developed, well-nourished Head exam: PRESENT: atraumatic, normocephalic Eye exam: PRESENT: conjunctiva pink, EOMI, PERRLA. ABSENT: scleral icterus Ear exam: PRESENT: normal external ear exam Mouth exam: PRESENT: moist, neck supple, tongue midline Respiratory exam: PRESENT: clear to auscultation barrera Cardiovascular exam: PRESENT: RRR. ABSENT: diastolic murmur, rubs, systolic murmur Vascular exam: PRESENT: normal capillary refill. ABSENT: pallor GI/Abdominal exam: PRESENT: normal bowel sounds, soft. ABSENT: distended, guarding, mass, organomegaly, rebound, tenderness Rectal exam: PRESENT: deferred Extremities exam: PRESENT: pedal edema - left lower extremity Musculoskeletal exam: PRESENT: ambulatory Neurological exam: PRESENT: alert, awake, oriented to person, oriented to place , oriented to time, oriented to situation, CN II-XII grossly intact. ABSENT: motor sensory deficit Psychiatric exam: PRESENT: appropriate affect, normal mood. ABSENT: homicidal ideation, suicidal ideation Skin exam: PRESENT: dry, intact, warm. ABSENT: cyanosis, rash Results Laboratory Results: 03/08/18 04:07 03/03/18 20:05 03/08/18 04:07 WBC 5.5 RBC 4.43 Hgb 12.6 Hct 37.8 MCV 85 MCH 28.3 MCHC 33.2 RDW 16.0 H Plt Count 163 Impressions: Venous Doppler Study 03/03/18 00:00 IMPRESSION: Acute deep venous thrombosis of the left lower extremity from the common femoral vein to the calf veins with thrombosis of the small saphenous vein on the left as well. No evidence of right lower extremity deep venous thrombosis. Abdomen/Pelvis CT 03/04/18 00:00 IMPRESSION: 1. LARGE SOFT TISSUE MASS IN THE LEFT SIDE OF THE PELVIS AND EXTENDING INTO THE UPPER THIGH. THIS COULD BE DUE TO PRIMARY SOFT TISSUE NEOPLASM. LYMPHOMA COULD BE ANOTHER POSSIBILITY. THE MASS SURROUNDS THE FEMORAL VESSELS AND IS THE ETIOLOGY FOR THE VENOUS THROMBOSIS IN THE LEFT LEG. 2. NO OTHER SIGNIFICANT OR ACUTE FINDINGS IN THE ABDOMEN OR PELVIS. Pelvis Biopsy Ultrasound 03/05/18 06:00 IMPRESSION: Ultrasound-guided biopsy of soft tissue mass in the left lower quadrant. Pathology is pending. Qualifiers - * PATIENT BEING DISCHARGED WITH ANY OF THE FOLLOWING DIAGNOSIS: VTE (PE or DVT) VTE patient discharged on overlapping Therapy?: Yes Plan Discharge Plan: Discharge home today with follow up appointment as indicated for Dr Biggs and myself. Time Spent: Greater than 30 Minutes - I spent more that 50% of this dsicahrge process in care coordination with pathology department and the oncologist, patient and her son regarding post discharge care, medication side effects and compliactions including unusual bleeeding and pulmonary embolism.
== END 2018-03-08 21:07 | disposition home or self-care (01) | DRG 989 ==
LOC: RAD 17:35 → 5 18:49
PROVIDERS: ADMIT Internal Medicine Geriatric Medicine; ATTEND Internal Medicine Geriatric Medicine
PROC: 0WBF3ZX Excision of Abdominal Wall, Percutaneous Approach, Diagnostic (ICD-10-PCS; principal; 2018-03-05)
DX: I82.412 Acute embolism and thrombosis of left femoral vein (principal); I82.432 Acute embolism and thrombosis of left popliteal vein; I82.492 Acute embolism and thrombosis of other specified deep vein of left lower extremity; I83.893 Varicose veins of bilateral lower extremities with other complications; R03.0 Elevated blood-pressure reading, without diagnosis of hypertension; E03.9 Hypothyroidism, unspecified; R19.04 Left lower quadrant abdominal swelling, mass and lump
CPT/HCPCS: 27040; 36415; 74177; 80053; 81001; 81241; 82272; 85025; 85027; 85302; 85305; 85306; 85597; 85598; 85610; 85613; 85730; 85732; 86146; 86147; 86148; 86849; 88305; 88341; 88342; 93970; J1644; J3490

== ENCOUNTER → 2018-03-12 | Outpatient (CLI) | payer BC, MEDICARE ==
--- NOTE | 2018-03-12 14:18 | RADIOLOGY REPORT (SQ) ---
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 RADIONUCLIDE AND DOSE: 27 mCi technetium 99m labeled red blood cells The route of agent administration: Intravenous TECHNIQUE: Following administration of the radionuclide, gated images of the heart are obtained in t hree projections. Left ventricular functional analysis performed. LIMITATIONS: None. FINDINGS: LEFT VENTRICULAR FUNCTION: EJECTION FRACTION: 85%. END-DIASTOLIC VOLUME: 111 mL. END-SYSTOLIC VOLUME: 11 mL. WALL MOTION: No focal wall motion abnormalities. OTHER: No other significant finding. IMPRESSION: NORMAL CARDIAC MUGA STUDY. NORMAL LEFT VENTRICULAR FUNCTION, greater than 70%. TECHNICAL DOCUMENTATION: JOB ID: [id number] [employer]- All Rights Reserved Reading location - IP/workstation name: [email or web address]
== END ==
LOC: RAD 10:18
PROVIDERS: ATTEND Internal Medicine Medical Oncology
DX: I42.7 Cardiomyopathy due to drug and external agent (principal); T45.1X5A Adverse effect of antineoplastic and immunosuppressive drugs, initial encounter
CPT/HCPCS: 78472; A9560; Q9969

== ENCOUNTER → 2018-03-14 | Outpatient (CLI) | payer BC, MEDICARE ==
--- NOTE | 2018-03-15 07:57 | RADIOLOGY REPORT (SQ) ---
EXAM DESCRIPTION: PET CT SKULL/THIGH COMPLETED DATE/TIME: 03/14/2018 7:40 pm REASON FOR STUDY: LYMPHOMA C85.90 NON-HODGKIN LYMPHOMA, UNSPECIFIED, UNSPECIFIED SITE COMPARISON: CT abdomen pelvis 03/04/2018 RADIONUCLIDE AND DOSE: 9.4 mCi F18 FDG The route of agent administration: Intravenous FASTING BLOOD SUGAR: 66 mg/dl CONTRAST TYPE AND DOSE: No CT contrast given. TECHNIQUE: Blood glucose level was verified. Above dose of FDG was injected intravenously. 2-D seg mented attenuation correction images were obtained from the base of the skull to the midthighs. Nonc ontrast CT images were obtained for attenuation correction and fusion with emission images. CT image s were performed without oral or intravenous contrast and are not sensitive for parenchymal lesions. A series of overlapping emission PET images were obtained. Images reviewed and manipulated at [facility] work station by the radiologist. Images stored on PACS. LIMITATIONS: None. FINDINGS: HEAD AND NECK: No areas of abnormal metabolic activity in the soft tissues of the head and neck. CHEST: No areas of abnormal metabolic activity in the chest. ABDOMEN AND PELVIS: Hypermetabolic lymph nodes are present as follows: Left para aortic 2.2 x 1.5 cm image 165, SUV 4.8 Left para aortic 2.8 x 1.7 cm image 177, SUV 6.5 Left common iliac region node 3.7 x 2 cm image 191, SUV 6.2 Left internal iliac 3.5 x 3 cm lymph node image 208, SUV 6.3 Left inguinal yelitza mass, 9 x 8.5 cm in size, SUV 8.6. PROXIMAL LOWER EXTREMITIES: No areas of abnormal metabolic activity in the soft tissues of the lower extremities. BONES: No abnormal metabolic activity in the visualized skeleton. ADDITIONAL CT FINDINGS: Soft tissue swelling left side due to left external iliac vein occlusion by t he lymph node mass. Bibasilar posterior costophrenic sulcus bandlike scarring. Nasal polyps, diffus e opacification of the paranasal sinuses OTHER: Liver background activity 2.1 SUV. Blood pool background activity 1.7 SUV. IMPRESSION: Hypermetabolic Left para-aortic and pelvic adenopathy compatible with history of B-cell lymphoma TECHNICAL DOCUMENTATION: JOB ID: [id number] [employer]- All Rights Reserved Reading location - IP/workstation name: [email or web address]
== END ==
LOC: RAD 16:41
PROVIDERS: ATTEND Internal Medicine Medical Oncology
DX: C85.96 Non-Hodgkin lymphoma, unspecified, intrapelvic lymph nodes (principal)
CPT/HCPCS: 78815; A9552

== ENCOUNTER 2018-03-16 08:56 | Day surgery (SDC) | payer BC, MEDICARE ==
[2018-03-16 09:42] LABS: HEMATOCRIT 43.5 % (36.0-47.0); HEMOGLOBIN 14.3 g/dL (12.0-15.5); MEAN CORPUSCULAR HEMOGLOBIN 28.1 pg (27.0-33.4); MEAN CORPUSCULAR HGB CONC 32.9 g/dL (32.0-36.0); MEAN CORPUSCULAR VOLUME 86 fl (80-97); PLATELET COUNT 210 10^3/uL (150-450); RED BLOOD COUNT 5.08 10^6/uL (3.72-5.28); WHITE BLOOD COUNT 5.4 10^3/uL (4.0-10.5)
[2018-03-16 09:55] LABS: BLOOD UREA NITROGEN 11 mg/dL (7-20)
[2018-03-16 10:15] LABS: INTERNATIONAL RATION (INR) 0.89; PROTHROMBIN TIME 12.5 SEC (11.4-15.4)
[2018-03-16 10:16] LABS: PARTIAL THROMBOPLASTIN TIME 32.8 SEC (23.5-35.8)
[2018-03-16] MEDS ORDERED: MIDAZOLAM 2 MG/2 ML INJ ONE (10:57)
[2018-03-16] MEDS ORDERED: LIDOCAINE 1% INJ-PF (10 MG/ML) 30 ML SDV ONE (10:58)
[2018-03-16] MEDS ORDERED: FENTANYL CITRATE INJ/PF 100 MCG/2 ML AMPUL ONE (10:58)
--- NOTE | 2018-03-16 12:31 | RADIOLOGY REPORT (SQ) ---
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 TECHNIQUE: CT guided biopsy of the right iliac crest bone marrow performed with conscious sedation. CT Fluoroscopy Time: [address] scanners at this facility use dose modulation, iterative reconstruction, and/or weight based d osing when appropriate to reduce radiation dose to as low as reasonably achievable (ALARA). [facility]: Dose Right [facility]: CareDose [facility]: Dose Right [facility]: Teradose 4D [facility]: [employer] RADIATION DOSE: CT Rad equipment meets quality standard of care and radiation dose reduction techniq ues were employed. CTDIvol: 4.0 - 9.6 mGy. DLP: 230 mGy-cm.mGy. FINDINGS: After obtaining informed consent and explaining the risks and benefits of conscious sedati on,the patient agreed to the procedure. Prior to the procedure, a time out was performed to verify th e patient's identity and planned procedure. IV conscious sedation was administered and physician direction by the registered nurse using 1 millig angelito of Versed and 50 micrograms of fentanyl. Physiologic monitoring was provided before, during, and after sedation. The total sedation time was 30 minutes. Documentation face to face time, the performing proceduralist, spent monitoring the patient: [address] scanning was performed to localize the percutaneous site for the biopsy approach. After sterile skin prep and local lidocaine for skin and deep tissue anesthesia, a coaxial biopsy nee dle was used to obtain a bone marrow aspirate, and a bone marrow core of tissue. The biopsy tissue wa s received by [facility] lab to be sent out for evaluation. There were no immediate complications. Pathology is pending at the time of dictation. IMPRESSION: CT GUIDED ASPIRATE AND CORE BIOPSY OF THE RIGHT POSTERIOR ILIAC CREST BONE MARROW PERFOR MED WITHOUT IMMEDIATE COMPLICATION. PATHOLOGY PENDING. IV CONSCIOUS SEDATION WITHOUT COMPLICATION. COMMENT: Quality ID 145: Final reports for procedures using fluoroscopy that document radiation exp osure indices, or exposure time and number of fluorographic images (if radiation exposure indices are not available) Patient medication list reviewed: Yes- Quality ID# [id number]:Eligible professional attests to documenting i n the medical record they obtained, updated, or reviewed the patient's current medications.. TECHNICAL DOCUMENTATION: JOB ID: [id number] Quality ID# 436: Final reports with documentation of one or more dose reduction techniques (e.g., Aut omated exposure control, adjustment of the mA and/or kV according to patient size, use of iterative r econstruction technique) 2010 [employer]- All Rights Reserved Reading location - IP/workstation name: [facility]
--- NOTE | 2018-03-16 12:31 | RADIOLOGY REPORT (SQ) ---
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 TECHNIQUE: CT guided biopsy of the right iliac crest bone marrow performed with conscious sedation. CT Fluoroscopy Time: [address] scanners at this facility use dose modulation, iterative reconstruction, and/or weight based d osing when appropriate to reduce radiation dose to as low as reasonably achievable (ALARA). [facility]: Dose Right [facility]: CareDose [facility]: Dose Right [facility]: Teradose 4D [facility]: [place] RADIATION DOSE: CT Rad equipment meets quality standard of care and radiation dose reduction techniq ues were employed. CTDIvol: 4.0 - 9.6 mGy. DLP: 230 mGy-cm.mGy. FINDINGS: After obtaining informed consent and explaining the risks and benefits of conscious sedati on,the patient agreed to the procedure. Prior to the procedure, a time out was performed to verify th e patient's identity and planned procedure. IV conscious sedation was administered and physician direction by the registered nurse using 1 millig angelito of Versed and 50 micrograms of fentanyl. Physiologic monitoring was provided before, during, and after sedation. The total sedation time was 30 minutes. Documentation face to face time, the performing proceduralist, spent monitoring the patient: [address] scanning was performed to localize the percutaneous site for the biopsy approach. After sterile skin prep and local lidocaine for skin and deep tissue anesthesia, a coaxial biopsy nee dle was used to obtain a bone marrow aspirate, and a bone marrow core of tissue. The biopsy tissue wa s received by [facility] lab to be sent out for evaluation. There were no immediate complications. Pathology is pending at the time of dictation. IMPRESSION: CT GUIDED ASPIRATE AND CORE BIOPSY OF THE RIGHT POSTERIOR ILIAC CREST BONE MARROW PERFOR MED WITHOUT IMMEDIATE COMPLICATION. PATHOLOGY PENDING. IV CONSCIOUS SEDATION WITHOUT COMPLICATION. COMMENT: Quality ID 145: Final reports for procedures using fluoroscopy that document radiation exp osure indices, or exposure time and number of fluorographic images (if radiation exposure indices are not available) Patient medication list reviewed: Yes- Quality ID# 130:Eligible professional attests to documenting i n the medical record they obtained, updated, or reviewed the patient's current medications.. TECHNICAL DOCUMENTATION: JOB ID: [id number] Quality ID# 436: Final reports with documentation of one or more dose reduction techniques (e.g., Aut omated exposure control, adjustment of the mA and/or kV according to patient size, use of iterative r econstruction technique) 2010 [employer]- All Rights Reserved Reading location - IP/workstation name: [facility]
[2018-03-16 14:16] VITALS: BP 106/63
== END 2018-03-16 14:05 | disposition home or self-care (01) ==
LOC: RAD 08:56
PROVIDERS: ATTEND Internal Medicine Medical Oncology
DX: C85.90 Non-Hodgkin lymphoma, unspecified, unspecified site (principal); Z79.899 Other long term (current) drug therapy; Z79.01 Long term (current) use of anticoagulants; Z86.718 Personal history of other venous thrombosis and embolism
CPT/HCPCS: 36415; 84520; 82565; 85027; 85610; 85730; 38221; 77012; J2250; J3010; J3490

== ENCOUNTER → 2018-08-06 | Outpatient (CLI) | payer BC, MEDICARE ==
--- NOTE | 2018-08-06 13:41 | RADIOLOGY REPORT (SQ) ---
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 TECHNIQUE: CT scan of the chest performed using helical scanning technique with dynamic intravenous contrast injection. Images reviewed with lung, soft tissue and bone windows. Reconstructed coronal and sagittal MPR and MIP images reviewed. All images stored on PACS. All CT scanners at this facility use dose modulation, iterative reconstruction, and/or weight based d osing when appropriate to reduce radiation dose to as low as reasonably achievable (ALARA). [facility]: Dose Right [facility]: CareDose [facility]: Dose Right [facility]: Teradose 4D [facility]: [employer] CONTRAST TYPE AND DOSE: See separate report of the same date. RENAL FUNCTION: 2 separate report. RADIATION DOSE: . LIMITATIONS: None. FINDINGS: LUNGS AND PLEURA: Calcified granulomas right lower lobe. No suspicious nodules. Bandlike scarring in the lingula and left lower lobe. No effusions. HILAR AND MEDIASTINAL STRUCTURES: No identified masses or abnormal nodes. HEART AND VASCULAR STRUCTURES: No aneurysm or dissection. No central pulmonary emboli. No pericardi al effusion. HARDWARE: None in the chest. UPPER ABDOMEN: See separate report of the CT of the abdomen. THYROID AND OTHER SOFT TISSUES: No masses. No adenopathy. BONES: Nothing acute. OTHER: Left-sided port tip in the SVC. IMPRESSION: No evidence of metastatic disease. TECHNICAL DOCUMENTATION: JOB ID: [id number] Quality ID # 436: Final reports with documentation of one or more dose reduction techniques (e.g., Au tomated exposure control, adjustment of the mA and/or kV according to patient size, use of iterative reconstruction technique) 2010 [employer]- All Rights Reserved Reading location - IP/workstation name: [email or web address]
--- NOTE | 2018-08-06 13:54 | RADIOLOGY REPORT (SQ) ---
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 Correlation PET-CT 03/14/2018. TECHNIQUE: CT scan of the abdomen and pelvis performed using helical scanning technique with dynamic intravenous contrast injection. Oral contrast. Images reviewed with lung, soft tissue, and bone win dows. Reconstructed coronal and sagittal MPR images reviewed. Delayed images for evaluation of the ur inary system also acquired. All images stored on PACS. All CT scanners at this facility use dose modulation, iterative reconstruction, and/or weight based d osing when appropriate to reduce radiation dose to as low as reasonably achievable (ALARA). [facility]: Dose Right [facility]: CareDose [facility]: Dose Right [facility]: Teradose 4D [facility]: [place] CONTRAST TYPE AND DOSE: contrast/concentration: Isovue 350.00 mg/ml; Total Contrast Delivered: 62.0 ml; Total Saline Delivered: 65.0 ml RENAL FUNCTION: GFR > 60. RADIATION DOSE: CT Rad equipment meets quality standard of care and radiation dose reduction techniq ues were employed. CTDIvol: 4.4 - 4.5 mGy. DLP: 644 mGy-cm.. LIMITATIONS: None. FINDINGS: LOWER CHEST: See separate report of the CT of the chest. LIVER: Normal size. No masses. No dilated ducts. SPLEEN: Normal size. No focal lesions. PANCREAS: No masses. No significant calcifications. No adjacent inflammation or peripancreatic fluid collections. Pancreatic duct not dilated. GALLBLADDER: No identified stones by CT criteria. No inflammatory changes to suggest cholecystitis. ADRENAL GLANDS: No significant masses or asymmetry. RIGHT KIDNEY AND URETER: No solid masses. No significant calcifications. No hydronephrosis or hyd roureter. LEFT KIDNEY AND URETER: No solid masses. No significant calcifications. No hydronephrosis or hydr oureter. AORTA AND VESSELS: No aneurysm. No dissection. Renal arteries, SMA, celiac without stenosis. RETROPERITONEUM: Improved adenopathy. Image 33, left periaortic node previously 2.0 cm, now 1.0 cm. BOWEL AND PERITONEAL CAVITY: No masses or inflammatory changes. No free fluid or peritoneal masses. APPENDIX: Normal. PELVIS: Left inguinal mass encasing the external iliac and common femoral arteries, 8.0 x 7.9 x 8.7 c m by my measurements, previously 7.9 x 7.9 x 10.4 cm. Decrease in left iliac adenopathy. Left inter nal iliac node previously 3.0 cm transverse diameter, now 1.2 cm. AP margins contiguous with the lef t inguinal mass. ABDOMINAL WALL: No masses. No hernias. BONES: No significant or acute findings. OTHER: No other significant finding. IMPRESSION: Favorable response to therapy. Slight decrease in size of left inguinal mass. Decrease in pelvic and retroperitoneal adenopathy. TECHNICAL DOCUMENTATION: JOB ID: [id number] Quality ID # 436: Final reports with documentation of one or more dose reduction techniques (e.g., Au tomated exposure control, adjustment of the mA and/or kV according to patient size, use of iterative reconstruction technique) 2010 [employer]- All Rights Reserved Reading location - IP/workstation name: [email or web address]
== END ==
LOC: RAD 10:32
PROVIDERS: ATTEND Internal Medicine Medical Oncology
DX: C83.33 Diffuse large B-cell lymphoma, intra-abdominal lymph nodes (principal)
CPT/HCPCS: 71260; 74177; 82565

== ENCOUNTER → 2018-09-19 | Outpatient (CLI) | payer BC ==
--- NOTE | 2018-09-20 10:29 | RADIOLOGY REPORT (SQ) ---
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 TECHNIQUE: Blood glucose level was verified. Above dose of FDG was injected intravenously. 2-D seg mented attenuation correction images were obtained from the base of the skull to the midthighs. Nonc ontrast CT images were obtained for attenuation correction and fusion with emission images. CT image s were performed without oral or intravenous contrast and are not sensitive for parenchymal lesions. A series of overlapping emission PET images were obtained. [email or web address] by the radiologist. Images stored on PACS. LIMITATIONS: None. FINDINGS: HEAD AND NECK: No areas of abnormal metabolic activity in the soft tissues of the head and neck. CHEST: No areas of abnormal metabolic activity in the chest. ABDOMEN AND PELVIS: Left periaortic node 1.2 x 2.0 cm and 2.9 SUV, previously 1.5 x 2.2 and 4.8 SUV. Left common iliac node 3.3 x 3.7, previously 3.7 x 2.0. 3.7 SUV, previously 6.2 SUV. Left inguinal node mass 9.4 x 8.6 cm, previously 9.0 x 8.5 cm. 7.1 SUV, previously 8.6 SUV. PROXIMAL LOWER EXTREMITIES: No areas of abnormal metabolic activity in the soft tissues of the lower extremities. BONES: No abnormal metabolic activity in the visualized skeleton. ADDITIONAL CT FINDINGS: Left-sided port with tip in the SVC. OTHER: Blood pool 1.4. Background liver 1.6 SUV. IMPRESSION: Overall stable retroperitoneal and pelvic adenopathy. Minimal significant change morpho logically with some improvement in SUVs. TECHNICAL DOCUMENTATION: JOB ID: [id number] [employer]- All Rights Reserved Reading location - IP/workstation name: [email or web address]
== END ==
LOC: RAD 17:32
PROVIDERS: ATTEND Internal Medicine Medical Oncology
DX: C83.33 Diffuse large B-cell lymphoma, intra-abdominal lymph nodes (principal)
CPT/HCPCS: 78815; A9552

== ENCOUNTER 2018-10-04 09:25 | Outpatient (CLI) | payer BC ==
[~2018-10-04 09:25] MED LIST: ACETAMINOPHEN 325 MG TABLET PO PRN; DIPHENHYDRAMINE HCL 25 MG CAPSULE PO PRN
[2018-10-04 10:03] LABS: HEMATOCRIT 28.8 % (36.0-47.0); HEMOGLOBIN 9.9 g/dL (12.0-15.5); MEAN CORPUSCULAR HEMOGLOBIN 32.4 pg (27.0-33.4); MEAN CORPUSCULAR HGB CONC 34.3 g/dL (32.0-36.0); MEAN CORPUSCULAR VOLUME 94 fl (80-97); RED BLOOD COUNT 3.06 10^6/uL (3.72-5.28); RED CELL DISTRIBUTION WIDTH 15.3 % (11.5-14.0)
[2018-10-04 10:38] LABS: PLATELET COUNT 12 10^3/uL (150-450); WHITE BLOOD COUNT 0.7 10^3/uL (4.0-10.5)
[2018-10-04] MEDS ORDERED: FUROSEMIDE INJ/PF 20 MG/2 ML SDV IV PRN (11:21)
[2018-10-04 16:00] VITALS: BP 93/63
[2018-10-04 19:35] LABS: PLATELET COUNT 49 10^3/uL (150-450)
[2018-10-05 11:06] LABS: PATH REVIEW PATHOLOGIST REVIEWED
== END 2018-10-04 18:33 | disposition home or self-care (01) ==
LOC: LAB 09:25 → 2S 10:12 → II 18:33
PROVIDERS: ATTEND Internal Medicine Medical Oncology
PROC: 30243R1 Transfusion of Nonautologous Platelets into Central Vein, Percutaneous Approach (ICD-10-PCS; principal; 2018-10-04)
DX: C83.30 Diffuse large B-cell lymphoma, unspecified site (principal)
CPT/HCPCS: 86900; 86901; 36415; 36430; 85049; P9035